=== PATIENT | male | born 1945 | race Caucasian/White ===

== ENCOUNTER 2016-06-30 08:22 | Day surgery (SDC) | payer MEDICARE, OTHER ==
[2016-06-30] MEDS ORDERED: KETOROLAC 0.45% OPHTH DROPS OPTH ONE (08:50)
[2016-06-30] MEDS ORDERED: TROPICAMIDE 1% OPHTH 2 ML DROPS OPTH ONE (08:50)
[2016-06-30] MEDS ORDERED: CYCLOPENTOLATE 1% OPHTH DROPS 2 ML OPTH ONE (08:50)
[2016-06-30] MEDS ORDERED: LACTATED RINGERS 500 ML IV ONE (09:15)
[2016-06-30] MEDS ORDERED: LIDOCAINE-MPF 2% 5 ML VIAL IM ONE (10:00)
[2016-06-30] MEDS ORDERED: MIDAZOLAM 2 MG/2 ML VIAL IVP ONE (10:00)
[2016-06-30] MEDS ORDERED: PROPOFOL 200 MG/20 ML VIAL IVP ONE (10:00)
[2016-06-30] MEDS ORDERED: EPINEPHrine 1 MG/ML AMP IO ONE (10:03)
[2016-06-30] MEDS ORDERED: BRIMONIDINE 0.2% OPHTH DROPS 5 ML OPTH ONE (10:03)
[2016-06-30] MEDS ORDERED: PROPARACAINE 0.5% OPHTH DROPS 15 ML OPTH ONE (10:03)
[2016-06-30] MEDS ORDERED: levoFLOXacin 0.5% OPHTH DROPS 5 ML OPTH ONE (10:04)
[2016-06-30] MEDS ORDERED: TETRACAINE OPHTH DROPS 2 ML OPTH ONE (10:04)
[2016-06-30] MEDS ORDERED: BSS/LIDOCAINE/EPINEPHRINE 1 ML SYRINGE IO ONE (10:04)
[2016-06-30] MEDS ORDERED: CHONDR SULF/HYALURONATE SYRINGE IO ONE (10:04)
== END 2016-06-30 08:23 | disposition home or self-care (01) ==
PROC: 08RJ3JZ Replacement of Right Lens with Synthetic Substitute, Percutaneous Approach (ICD-10-PCS; principal; 2016-06-30 09:35)
DX: H25.11 Age-related nuclear cataract, right eye (principal)
CPT/HCPCS: 66984; V2632

== ENCOUNTER 2016-07-09 11:17 | Emergency (ER) | payer MEDICARE, OTHER ==
[2016-07-09] MEDS ORDERED: LIDOCAINE-MPF 1% 5 ML VIAL ONE (12:54)
== END 2016-07-09 13:41 | disposition home or self-care (01) ==
DX: S01.81XA Laceration without foreign body of other part of head, initial encounter (principal); W01.0XXA Fall on same level from slipping, tripping and stumbling without subsequent striking against object, initial encounter; Z91.81 History of falling; Y93.01 Activity, walking, marching and hiking; Y92.009 Unspecified place in unspecified non-institutional (private) residence as the place of occurrence of the external cause; Y99.8 Other external cause status; G20 Parkinson's disease; Z87.891 Personal history of nicotine dependence

== ENCOUNTER 2016-07-14 12:21 | Day surgery (SDC) | payer MEDICARE, OTHER ==
[2016-07-14] MEDS ORDERED: CYCLOPENTOLATE 1% OPHTH DROPS 2 ML OPTH ONE (12:54)
[2016-07-14] MEDS ORDERED: TROPICAMIDE 1% OPHTH 2 ML DROPS OPTH ONE (12:54)
[2016-07-14] MEDS ORDERED: KETOROLAC 0.45% OPHTH DROPS OPTH ONE (12:54)
[2016-07-14] MEDS ORDERED: LACTATED RINGERS 500 ML IV ONE (13:09)
[2016-07-14] MEDS ORDERED: PROPOFOL 200 MG/20 ML VIAL IVP ONE (14:10)
[2016-07-14] MEDS ORDERED: MIDAZOLAM 2 MG/2 ML VIAL IVP ONE (14:10)
[2016-07-14] MEDS ORDERED: LIDOCAINE-MPF 2% 5 ML VIAL IM ONE (14:10)
[2016-07-14] MEDS ORDERED: BRIMONIDINE 0.2% OPHTH DROPS 5 ML OPTH ONE (14:11)
[2016-07-14] MEDS ORDERED: PROPARACAINE 0.5% OPHTH DROPS 15 ML OPTH ONE (14:11)
[2016-07-14] MEDS ORDERED: CHONDR SULF/HYALURONATE SYRINGE IO ONE (14:11)
[2016-07-14] MEDS ORDERED: BSS/LIDOCAINE/EPINEPHRINE 1 ML SYRINGE IO ONE (14:11)
[2016-07-14] MEDS ORDERED: levoFLOXacin 0.5% OPHTH DROPS 5 ML OPTH ONE (14:11)
[2016-07-14] MEDS ORDERED: EPINEPHrine 1 MG/ML AMP IO ONE (14:11)
== END 2016-07-14 12:22 | disposition home or self-care (01) ==
PROC: 08RK3JZ Replacement of Left Lens with Synthetic Substitute, Percutaneous Approach (ICD-10-PCS; principal; 2016-07-14 13:50)
DX: H25.12 Age-related nuclear cataract, left eye (principal); Z87.891 Personal history of nicotine dependence; G20 Parkinson's disease
CPT/HCPCS: 66984; V2632

== ENCOUNTER 2017-01-06 01:57 | Emergency (ER) | payer MEDICARE, OTHER ==
--- NOTE | 2017-01-06 03:08 | XRAY Preliminary Report ---
Exam: XR KNEE 4 VIEW RT IMPRESSION: Prepatellar swelling without right knee fracture or malalignment seen. [facility] SITE ID: [id number]
--- NOTE | 2017-01-06 03:10 | XRAY Preliminary Report ---
Exam: XR Hand 3 View RT IMPRESSION: Negative right hand. [facility] SITE ID: [id number]
--- NOTE | 2017-01-06 03:11 | XRAY Report ---
EXAM: RIGHT KNEE RADIOGRAPHY EXAM DATE: 01/06/2017 02:37 AM. CLINICAL HISTORY: Knee pain and swelling after fall. COMPARISON: None. TECHNIQUE: 4 views. FINDINGS: Bones: Normal. No fractures or bone lesions. Joints: Normal. No effusion. No subluxations. Soft Tissues: Prepatellar swelling. IMPRESSION: Prepatellar swelling without right knee fracture or malalignment seen. [facility] Referring Provider Line: [phone] SITE ID: [id number]
--- NOTE | 2017-01-06 03:12 | XRAY Report ---
EXAM: RIGHT HAND RADIOGRAPHY EXAM DATE: 01/06/2017 02:36 AM. CLINICAL HISTORY: Hand pain, fall. COMPARISON: 01/15/2009. TECHNIQUE: 3 views. FINDINGS: Bones: Normal. No fractures or bone lesions. Joints: Very mild arthritic changes. No subluxations. Soft Tissues: Normal. No soft tissue swelling. IMPRESSION: Negative right hand. [facility] Referring Provider Line: [phone] SITE ID: [id number]
[2017-01-06] MEDS ORDERED: LIDOCAINE 2% 10 ML MDV ONE (03:18)
[2017-01-06] MEDS ORDERED: methylPREDNISolone SUCCINATE 40 MG/ML VIAL ONE (03:18)
--- NOTE | 2017-01-06 03:44 | ED Physician Documentation ---
PD HPI LOWER EXT INJURY - Stated complaint Stated Complaint: R KNEE PX - Chief complaint Chief Complaint: Ext Problem - History obtained from History obtained from: Patient, Family - History of Present Illness PD HPI LOW EXT INJURY LOCATION: Right, Knee Type of injury: Fall Where injury occurred: Home Timing - onset: Yesterday Timing - details: Abrupt onset Improved by: Immobilization Worsened by: Moving, Palpating Associated symptoms: Swelling Contributing factors: No: Anticoagulated, Prior ortho surgery Similar symptoms before: No diagnosis Recently seen: Not recently seen - Additional information Additional information: patient is a 71 year old male with a history of parkinson's and mulitple falls who is presenting to the emergency for right sided knee pain and swelling. Patient states that he fell yesterday and the swelling in the knee has become progressively worse so he came in for evaluation. patient also states that he hurt his right hand in the fall as well. Review of Systems Constitutional: denies: Fever, Chills Eyes: denies: Decreased vision, Photophobia Ears: denies: Ear pain, Drainage/discharge Nose: denies: Rhinorrhea / runny nose, Congestion Throat: denies: Sore throat Cardiac: denies: Chest pain / pressure Respiratory: denies: Cough GI: denies: Abdominal Pain, Nausea, Vomiting Skin: denies: Rash, Lesions Musculoskeletal: reports: Extremity pain, Joint pain, Extremity swelling, Joint swelling. denies: Neck pain, Back pain Neurologic: reports: Other (tremors). denies: Generalized weakness, Focal weakness Psychiatric: denies: Depressed, Suicidal Immunocompromised: denies: Immunocompromised PD PAST MEDICAL HISTORY - Past Medical History Past Medical History: Yes Cardiovascular: Other Respiratory: Pneumonia, Other Neuro: Parkinson's Endocrine/Autoimmune: Other GI: Colon polyps : Incontinence, Other HEENT: Chronic vision loss Psych: None Musculoskeletal: Osteoarthritis, Chronic back pain, Other Derm: None Other Past Medical History: Amilcar's syndrome - Past Surgical History Past Surgical History: Yes General: Colonoscopy Ortho: Rotator cuff repair, Spine surgery, Other Derm: Debridement - Present Medications Home Medications: Ambulatory Orders Medication Instructions Recorded Confirmed Amantadine HCl [Amantadine] 100 mg ORAL BID 07/03/14 01/06/17 Quetiapine Fumarate 62.5 mg ORAL DAILY 07/03/14 01/06/17 Ropinirole HCl 8 mg ORAL TID 07/03/14 01/06/17 Trazodone HCl 50 mg ORAL QPM 07/03/14 01/06/17 Mirabegron [Myrbetriq] 50 mg PO DAILY 05/19/16 01/06/17 Donepezil [Aricept] 1 tab PO DAILY 06/30/16 01/06/17 Mirtazapine 1 tab PO DAILY 06/30/16 01/06/17 Carbidopa/Levodopa [Rytary ER 1 each PO DAILY 01/06/17 01/06/17 61.25 mg-245 mg Cap] Escitalopram [Lexapro] 15 mg PO DAILY 01/06/17 01/06/17 - Allergies Allergies/Adverse Reactions: Allergies Allergy/AdvReac Type Severity Reaction Status Date / Time morphine Allergy Severe Hallucinati Verified 01/06/17 02:29 ons ertapenem AdvReac Hallucinati Verified 01/06/17 02:29 ons - Social History Does the pt smoke?: No Smoking Status: Former smoker Does the pt drink ETOH?: No Does the pt have substance abuse?: No - Immunizations Immunizations are current?: No Immunizations: TDAP current <10years - POLST Patient has POLST: No PD ED PE NORMAL - Vitals Vital signs reviewed: Yes - General General: Alert and oriented X 3 - HEENT HEENT: Atraumatic, PERRL - Neck Neck: Supple, no meningeal sign - Cardiac Cardiac: RRR, No murmur - Respiratory Respiratory: No respiratory distress - Abdomen Abdomen: Soft - Derm Derm: Normal color, Warm and dry - Neuro Neuro: Alert and oriented X 3 - Psych Psych: Normal mood, Normal affect PD ED PE EXPANDED - Extremities Extremities: Right finger(s) (tenderness and swelling over multiple digits in right hand), Right knee (tenderness and swelling of right knee) - Neuro Neuro: Other (tremor) Results - Vitals Vitals: Vital Signs - 24 hr 01/06/17 02:00 Temperature 36.4 C L Heart Rate 55 L Respiratory 17 Rate Blood Pressure 155/82 H O2 Saturation 100 Oxygen O2 Source Room air - Rads (name of study) knee x-ray Radiology: Final report received (no acute fracture or dislocation) hand x-ray Radiology: Final report received (no acute fracture or dislocation) Procedures - Arthrocentesis Joint: Knee Preparation: Consent obtained, Sterile prep and drape Anesthesia: Lidocaine 2% Fluid: Clear Aftercare: Dressing applied, No complications PD MEDICAL DECISION MAKING - ED course Complexity details: reviewed old records, reviewed results, re-evaluated patient , considered differential, d/w patient, d/w family ED course: Patient was seen and examined at bedside. patient was sent for imaging. When patient returned the results were reviewed. there was no acute fracture or dislocation. a therapuetic arthrocentesis was performed. Patient tolerated it well. Patient required no further work up at this time and was stable for discharge with outpatient follow up. Departure - Departure Disposition: 01 Home, Self Care Clinical Impression: Swelling of right knee joint Condition: Good Instructions: ED Effusion Knee Follow-Up: Chris Ramirez MD [Primary Care Provider] - As Needed Comments: Your x-rays today showed no acute fractures or dislocations. You should continue to ice your knee and take motrin or tylenol as needed for pain. You should elevate your knee as much as possible. You can followup with your pmd if your symptoms persist. You may return to the emergency department at any time for new, worsening or uncontrollable symptoms.
[2017-01-06 03:46] VITALS: BP 143/75
== END 2017-01-06 03:55 | disposition home or self-care (01) ==
LOC: ED 01:57
DX: M25.461 Effusion, right knee (principal); G20 Parkinson's disease; I73.00 Raynaud's syndrome without gangrene; Z87.891 Personal history of nicotine dependence; Z91.81 History of falling
CPT/HCPCS: 20610; 99283

== ENCOUNTER 2017-01-14 08:11 | Outpatient (CLI) | payer MEDICARE, OTHER ==
[2017-01-14 08:36] LABS: BASOPHILS % (AUTO) 0.4 %; EOSINOPHILS # (AUTO) 0.1 10^3/uL (0.0-0.7); EOSINOPHILS % (AUTO) 1.9 %; HCT - HEMATOCRIT 32.1 % (42.0-52.0); HGB - HEMOGLOBIN 10.8 g/dL (14.0-18.0); LYMPHOCYTES # (AUTO) 0.6 10^3/uL (1.5-3.5); LYMPHOCYTES % (AUTO) 12.9 %; MEAN CORPUSCULAR HEMOGLOBIN 31.7 pg (27.0-31.0); MEAN CORPUSCULAR HGB CONC 33.6 g/dL (32.0-36.0); MEAN CORPUSCULAR VOLUME 94.6 fL (80.0-94.0); MEAN PLATELET VOLUME 5.2 fL (7.4-11.4); MONOCYTES # (AUTO) 0.3 10^3/uL (0.0-1.0); MONOCYTES % (AUTO) 7.6 %; NEUTROPHILS # (AUTO) 3.5 10^3/uL (1.5-6.6); NEUTROPHILS % (AUTO) 77.2 %; RED CELL DISTRIBUTION WIDTH 13.4 % (12.0-15.0); UNCORRECTED WHITE BLOOD COUNT 4.6 x10^3/uL; WHITE BLOOD COUNT 4.6 x10^3/uL (4.8-10.8)
[2017-01-14 09:15] LABS: ALBUMIN/GLOBULIN RATIO 1.1 (1.0-2.2); BILIRUBIN,TOTAL 0.6 mg/dL (0.2-1.0); BUN - BLOOD UREA NITROGEN 34 mg/dL (6-20); CALCIUM 9.1 mg/dL (8.5-10.3); CARBON DIOXIDE - CO2 32 mmol/L (21-32); CHLORIDE 102 mmol/L (101-111); CREATININE 1.1 mg/dL (0.6-1.2); GFR - MDRD 66 (>89); GLUCOSE 103 mg/dL (70-100); POTASSIUM 4.5 mmol/L (3.5-5.0); SODIUM 140 mmol/L (135-145); TOTAL PROTEIN 6.8 g/dL (6.7-8.2)
[2017-01-14 09:17] LABS: URIC ACID 3.2 mg/dL (2.6-7.2)
[2017-01-17 16:37] LABS: ANA SCREEN POSITIVE (NEGATIVE); ANA TITER 1:40 titer (())
== END 2017-01-14 08:12 | disposition home or self-care (01) ==
LOC: LAB 08:11
PROVIDERS: ATTEND Family Medicine
DX: M19.90 Unspecified osteoarthritis, unspecified site (principal); R63.4 Abnormal weight loss; M70.41 Prepatellar bursitis, right knee
CPT/HCPCS: 36415; 80053; 84443; 84550; 85025; 85651; 86038; 86140; 86430

== ENCOUNTER 2017-01-18 15:16 | Outpatient (CLI) | payer MEDICARE, OTHER | END 2017-01-18 15:17 | LOC: LAB.R 15:16 | PROVIDERS: ATTEND Physician Assistant Medical | DX: M70.41 Prepatellar bursitis, right knee (principal) | CPT/HCPCS: 87070; 87205 ==

== ENCOUNTER 2017-01-20 12:07 | Emergency (ER) | payer MEDICARE, OTHER ==
--- NOTE | 2017-01-20 14:25 | ED Physician Documentation ---
PD HPI LOWER EXT INJURY - Stated complaint Stated Complaint: R KNEE SWELLING - Chief complaint Chief Complaint: Ext Problem - History obtained from History obtained from: Patient, Family - History of Present Illness PD HPI LOW EXT INJURY LOCATION: Other (71-year-old gentleman with history of Parkinson's who fell a couple of weeks ago and scraped his right knee. He has developed pre-Patellar bursitis, has had a needle aspiration as well as one incision made and continues to have redness and swelling but no fevers. He is on Bactrim currently. Culture from 2 days ago grew nothing. Of note at some point someone did ISAIAS on him which was positive for speckled pattern and this was discussed with the patient and his and they know they need further workup on that for connective tissue disease.) Review of Systems Constitutional: denies: Fever, Chills Throat: denies: Dental pain / toothache, Sore throat Cardiac: denies: Chest pain / pressure, Palpitations Respiratory: denies: Dyspnea, Cough PD PAST MEDICAL HISTORY - Past Medical History Past Medical History: Yes Cardiovascular: Other Respiratory: Pneumonia, Other Neuro: Parkinson's Endocrine/Autoimmune: Other GI: Colon polyps : Incontinence, Other HEENT: Chronic vision loss Psych: None Musculoskeletal: Osteoarthritis, Chronic back pain, Other Derm: None - Past Surgical History Past Surgical History: Yes General: Colonoscopy Ortho: Rotator cuff repair, Spine surgery, Other Derm: Debridement - Present Medications Home Medications: Ambulatory Orders Medication Instructions Recorded Confirmed Amantadine HCl [Amantadine] 100 mg ORAL BID 07/03/14 01/20/17 Quetiapine Fumarate 62.5 mg ORAL DAILY 07/03/14 01/20/17 Ropinirole HCl 8 mg ORAL TID 07/03/14 01/20/17 Trazodone HCl 50 mg ORAL QPM 07/03/14 01/20/17 Mirabegron [Myrbetriq] 50 mg PO DAILY 05/19/16 01/20/17 Donepezil [Aricept] 1 tab PO DAILY 06/30/16 01/20/17 Mirtazapine 1 tab PO DAILY 06/30/16 01/20/17 Carbidopa/Levodopa [Rytary ER 1 each PO DAILY 01/06/17 01/20/17 61.25 mg-245 mg Cap] Escitalopram [Lexapro] 15 mg PO DAILY 01/06/17 01/20/17 - Allergies Allergies/Adverse Reactions: Allergies Allergy/AdvReac Type Severity Reaction Status Date / Time morphine Allergy Severe Hallucinati Verified 01/20/17 14:12 ons ertapenem AdvReac Hallucinati Verified 01/20/17 14:12 ons - Social History Does the pt smoke?: No Smoking Status: Former smoker Does the pt drink ETOH?: No Does the pt have substance abuse?: No - Immunizations Immunizations are current?: No Immunizations: TDAP current <10years - POLST Patient has POLST: No PD ED PE NORMAL - Vitals Vital signs reviewed: Yes - General General: Alert and oriented X 3, Other (Parkinsonian motion) - Extremities Extremities: Other (Redness and swelling with scrapes over the prepatellar bursa on the right knee without limited range of motion.) - Neuro Neuro: Alert and oriented X 3, Normal speech - Psych Psych: Normal mood, Normal affect Results - Vitals Vitals: Vital Signs - 24 hr 01/20/17 01/20/17 12:21 15:50 Temperature 37.1 C Heart Rate 79 74 Respiratory 17 16 Rate Blood Pressure 120/60 111/64 O2 Saturation 100 94 Oxygen O2 Source Room air - Labs Labs: Laboratory Tests 01/20/17 01/20/17 01/20/17 14:41 14:41 14:41 WBC 6.2 RBC 3.34 L Hgb 10.6 L Hct 31.8 L MCV 95.0 H MCH 31.7 H MCHC 33.4 RDW 13.4 Plt Count 206 MPV 5.3 L Neut # 4.9 Lymph # 0.8 L [place] # 0.4 Eos # 0.1 Baso # 0.0 Absolute Nucleated RBC 0.00 Nucleated RBCs 0.0 ESR 67 H Sodium 139 Potassium 4.8 Chloride 102 Carbon Dioxide 31 Anion Gap 6.0 BUN 38 H Creatinine 1.3 H Estimated GFR (MDRD) 55 L Glucose 97 Calcium 9.2 C-Reactive Protein 2.6 H Procedures - Abscess I&D (location) right prepatellar bursa Preparation: Betadine, Lidocaine 1%, With epi Incision: Incised with scalpel, Loculations broken, Packed (1/4 inch packing), Culture obtained. No: Purulent drainage (bloody/clear) Other: Pt tolerated well, Dressing applied PD MEDICAL DECISION MAKING - ED course ED course: 71-year-old gentleman with prepatellar bursitis. I spoke with his PA, who admits that the I&D done a few days ago was probably insufficient from his parkinsonian motion. We did get a good I&D today and the culture was repeated and the bursa was packed. I will change his antibiotics at this juncture, since his recent culture was negative. His blood work is slightly improved in the sense that he does not have a white count and his CRP is better than it was the other day. His sed rate is slightly higher but he has chronically high ESRs , likely related to whatever autoimmune process he has and needs to be followed up and [facility] does know about that. 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 Discharge Date/Time: 01/20/17 15:40
[2017-01-20] MEDS ORDERED: LIDOCAINE 2% 10 ML MDV ONE (14:36)
[2017-01-20] MEDS ORDERED: LIDOCAINE MPF 1%-EPI 1:200000 30 ML VIAL ONE (14:36)
[2017-01-20 14:51] LABS: BASOPHILS % (AUTO) 0.5 %; EOSINOPHILS # (AUTO) 0.1 10^3/uL (0.0-0.7); EOSINOPHILS % (AUTO) 1.8 %; HCT - HEMATOCRIT 31.8 % (42.0-52.0); HGB - HEMOGLOBIN 10.6 g/dL (14.0-18.0); LYMPHOCYTES # (AUTO) 0.8 10^3/uL (1.5-3.5); LYMPHOCYTES % (AUTO) 13.7 %; MEAN CORPUSCULAR HEMOGLOBIN 31.7 pg (27.0-31.0); MEAN CORPUSCULAR HGB CONC 33.4 g/dL (32.0-36.0); MEAN PLATELET VOLUME 5.3 fL (7.4-11.4); MONOCYTES # (AUTO) 0.4 10^3/uL (0.0-1.0); MONOCYTES % (AUTO) 5.8 %; NEUTROPHILS # (AUTO) 4.9 10^3/uL (1.5-6.6); NEUTROPHILS % (AUTO) 78.2 %; RED BLOOD COUNT 3.34 10^6/uL (4.70-6.10); RED CELL DISTRIBUTION WIDTH 13.4 % (12.0-15.0); UNCORRECTED WHITE BLOOD COUNT 6.2 x10^3/uL; WHITE BLOOD COUNT 6.2 x10^3/uL (4.8-10.8)
[2017-01-20 15:05] LABS: CALCIUM 9.2 mg/dL (8.5-10.3); CREATININE 1.3 mg/dL (0.6-1.2); POTASSIUM 4.8 mmol/L (3.5-5.0)
[2017-01-20 15:51] VITALS: BP 111/64
== END 2017-01-20 15:40 | disposition home or self-care (01) ==
LOC: ED 12:07
DX: M70.41 Prepatellar bursitis, right knee (principal); G20 Parkinson's disease; M19.90 Unspecified osteoarthritis, unspecified site; Z86.010 Personal history of colon polyps; Z87.891 Personal history of nicotine dependence
CPT/HCPCS: 10060; 36415; 80048; 85025; 85651; 86140; 87070; 87077; 87205; 99283

== ENCOUNTER 2017-01-27 07:19 | Outpatient (CLI) | payer MEDICARE, OTHER ==
[2017-01-29 11:35] LABS: TEST RESULT REPORT (())
== END 2017-01-27 07:20 | disposition home or self-care (01) ==
LOC: LAB 07:19
PROVIDERS: ATTEND Family Medicine
DX: R76.0 Raised antibody titer (principal); R55 Syncope and collapse; J84.9 Interstitial pulmonary disease, unspecified; R63.4 Abnormal weight loss; M70.41 Prepatellar bursitis, right knee
CPT/HCPCS: 36415; 81599; 85651; 86140; 86225; 86255

== ENCOUNTER 2017-01-28 11:46 | Emergency (ER) | payer MEDICARE, OTHER ==
--- NOTE | 2017-01-28 12:28 | ED Physician Documentation ---
PD HPI DYSPNEA - Stated complaint Stated Complaint: SOA - Chief complaint Chief Complaint: General - History obtained from History obtained from: Patient, Family () - History of Present Illness Timing - onset: How many weeks ago (several weeks of dyspnea with activity, epsidoes of general weakness and also having worse balance with falling often. Has fallen several times in the past couple of days. He has a can but does not use it regularly and it does not guard his falls anyway, per patient.) Timing - onset during: Light activity Timing - details: Gradual onset, Waxing and waning Inciting event(s): No: Out of meds, URI Improved by: Rest Worsened by: Exertion. No: Laying flat, Coughing Associated symptoms: Cough (mild intermittent, without sputum production.). No : Fever, Wheezing, Chest pain / discomfort, Palpitations, Bilateral edema Similar symptoms before: Has not had sx before Recently seen: Clinic (saw PMD about the dyspnea, and is to get heart stress test (presume chemical since he cannot do exertional due to Parkinsons/balance) . Also has had knee effusion/infection and had bursal drainage and placed on Cipro? by Ortho last week. Patient had already had problems with increased falls prior to that though.) Review of Systems Constitutional: denies: Fever, Chills Nose: denies: Rhinorrhea / runny nose, Congestion Throat: denies: Sore throat Cardiac: denies: Chest pain / pressure, Palpitations, Pedal edema, Calf pain Respiratory: reports: Dyspnea, Cough. denies: Wheezing GI: denies: Abdominal Pain, Nausea, Vomiting, Diarrhea, Bloody / black stool : denies: Dysuria, Frequency Neurologic: reports: Generalized weakness. denies: Difficulty speaking, Confused, Altered mental status, Headache PD PAST MEDICAL HISTORY - Past Medical History Past Medical History: Yes Cardiovascular: Other Respiratory: Pneumonia, Other Neuro: Parkinson's Endocrine/Autoimmune: Other GI: Colon polyps : Incontinence, Other HEENT: Chronic vision loss Psych: None Musculoskeletal: Osteoarthritis, Chronic back pain, Other Derm: None - Past Surgical History Past Surgical History: Yes General: Colonoscopy Ortho: Rotator cuff repair, Spine surgery, Other Derm: Debridement - Present Medications Home Medications: Ambulatory Orders Medication Instructions Recorded Confirmed Amantadine HCl [Amantadine] 100 mg ORAL BID 07/03/14 01/20/17 Quetiapine Fumarate 62.5 mg ORAL DAILY 07/03/14 01/28/17 Ropinirole HCl 8 mg ORAL TID 07/03/14 01/28/17 Trazodone HCl 50 mg ORAL QPM 07/03/14 01/28/17 Mirabegron [Myrbetriq] 50 mg PO DAILY 05/19/16 01/28/17 Donepezil [Aricept] 1 tab PO DAILY 06/30/16 01/28/17 Mirtazapine 1 tab PO DAILY 06/30/16 01/28/17 Escitalopram [Lexapro] 15 mg PO DAILY 01/06/17 01/28/17 Albuterol Sulfate [Proair Hfa 2 puffs IH QID #1 hfa.aer.ad 01/28/17 Inhaler] Carbidopa/Levodopa [Rytary ER 11 each PO QID 01/28/17 01/28/17 23.75 mg-95 mg Cap] Fludrocortisone [Florinef] 0.1 mg PO DAILY #30 tablet 01/28/17 - Allergies Allergies/Adverse Reactions: Allergies Allergy/AdvReac Type Severity Reaction Status Date / Time morphine Allergy Severe Hallucinati Verified 01/20/17 14:12 ons ertapenem AdvReac Hallucinati Verified 01/20/17 14:12 ons - Social History Does the pt smoke?: No Smoking Status: Former smoker Does the pt drink ETOH?: No Does the pt have substance abuse?: No - Immunizations Immunizations are current?: No Immunizations: TDAP current <10years - POLST Patient has POLST: No PD ED PE NORMAL - Vitals Vital signs reviewed: Yes - General General: Alert and oriented X 3, Well developed/nourished, Other (thin and frail appearing) - HEENT HEENT: Ears normal, Pharynx benign, Other (some faint bruising left forehead. ) - Neck Neck: Supple, no meningeal sign, No bony TTP, No adenopathy - Cardiac Cardiac: RRR, No murmur - Respiratory Respiratory: Clear bilaterally, Other (no chestwall tenderness) - Abdomen Abdomen: Soft, Non tender - Back Back: No spinal TTP - Derm Derm: Normal color, Warm and dry - Extremities Extremities: No edema, No calf tenderness / cord, Other (right knee without effusion, hole in anterior aspect. Good full extension. ) - Neuro Neuro: Alert and oriented X 3, chief wheelage clerk 2-12 intact, No motor deficit, No sensory deficit, Normal speech, Other (some general movements c/w parkinsons. ) Results - Vitals Vitals: Vital Signs - 24 hr 01/28/17 01/28/17 01/28/17 11:53 12:11 14:44 Temperature 36.5 C Heart Rate 58 L 64 59 L Respiratory 18 18 Rate Blood Pressure 123/59 L 138/78 H 137/71 H O2 Saturation 94 99 100 Oxygen O2 Source Room air - Labs Labs: Laboratory Tests 01/28/17 01/28/17 01/28/17 13:15 13:15 13:15 WBC 4.1 L RBC 3.08 L Hgb 9.9 L Hct 29.3 L MCV 95.1 H MCH 32.1 H MCHC 33.7 RDW 13.7 Plt Count 169 MPV 5.6 L Neut # 3.2 Lymph # 0.6 L [place] # 0.3 Eos # 0.0 Baso # 0.0 Absolute Nucleated RBC 0.00 Nucleated RBCs 0.0 ESR Sodium 138 Potassium 4.4 Chloride 101 Carbon Dioxide 30 Anion Gap 7.0 BUN 34 H Creatinine 1.4 H Estimated GFR (MDRD) 50 L Glucose 93 Calcium 8.9 Magnesium 2.3 Total Bilirubin 0.9 AST 13 ALT < 10 L Alkaline Phosphatase 91 Troponin I B-Natriuretic Peptide 30 Total Protein 6.4 L Albumin 3.6 Globulin 2.8 Albumin/Globulin Ratio 1.3 Lipase 16 L Carcinoembryonic Ag Vitamin B12 Urine Color Urine Clarity Urine pH Ur Specific Sanders Urine Protein Urine Glucose (UA) Urine Ketones Urine Occult Blood Urine Nitrite Urine Bilirubin Urine Urobilinogen Ur Leukocyte Esterase Ur Microscopic Review Urine Culture Comments 01/28/17 01/28/17 01/28/17 13:15 13:15 13:15 WBC RBC Hgb Hct MCV MCH MCHC RDW Plt Count MPV Neut # Lymph # [place] # Eos # Baso # Absolute Nucleated RBC Nucleated RBCs ESR Sodium Potassium Chloride Carbon Dioxide Anion Gap BUN Creatinine Estimated GFR (MDRD) Glucose Calcium Magnesium Total Bilirubin AST ALT Alkaline Phosphatase Troponin I < 0.04 B-Natriuretic Peptide Total Protein Albumin Globulin Albumin/Globulin Ratio Lipase Carcinoembryonic Ag 1.3 Vitamin B12 197 Urine Color Urine Clarity Urine pH Ur Specific [place] Urine Protein Urine Glucose (UA) Urine Ketones Urine Occult Blood Urine Nitrite Urine Bilirubin Urine Urobilinogen Ur Leukocyte Esterase Ur Microscopic Review Urine Culture Comments 01/28/17 01/28/17 13:15 14:09 WBC RBC Hgb Hct MCV MCH MCHC RDW Plt Count MPV Neut # Lymph # [place] # Eos # Baso # Absolute Nucleated RBC Nucleated RBCs ESR 49 H Sodium Potassium Chloride Carbon Dioxide Anion Gap BUN Creatinine Estimated GFR (MDRD) Glucose Calcium Magnesium Total Bilirubin AST ALT Alkaline Phosphatase Troponin I B-Natriuretic Peptide Total Protein Albumin Globulin Albumin/Globulin Ratio Lipase Carcinoembryonic Ag Vitamin B12 Urine Color DARK YELLOW Urine Clarity CLEAR Urine pH 7.0 Ur Specific [place] 1.025 Urine Protein TRACE Urine Glucose (UA) NEGATIVE Urine Ketones 15 H Urine Occult Blood NEGATIVE Urine Nitrite NEGATIVE Urine Bilirubin NEGATIVE Urine Urobilinogen 0.2 (NORMAL) Ur Leukocyte Esterase NEGATIVE Ur Microscopic Review NOT INDICATED Urine Culture Comments NOT INDICATED - Rads (name of study) head CT Radiology: Prelim report reviewed (no bleed/subdural, acute changes. ) chest Radiology: Prelim report reviewed (no acute process) PD MEDICAL DECISION MAKING - ED course Complexity details: reviewed results, considered differential (he is on quinolone but has had symptoms prior to starting that. Could consider changing abx but his culture is sensitive to that (and other meds too). No obvious lung/ heart process. He did feel better with neb treatment. Will give MDI. Heart rate in ED did vary down to 48-50s but he felt okay. Consider Holter to see if goes slower at times, which could lead to his "weak spells" and some of the falls. ) , d/w patient, d/w talent acquisition consultant (Dr. Mildred Hudson, his Heurologist, who suggested some med changes. Talked also with Dr. Ramirez, who will set up pt with Holter to see about heart rate over time, given the episodes of falling/ weakness. Patient does not like to use cane and does not have walker, but given a walker and he agrees to use it. ) Departure - Departure Disposition: 01 Home, Self Care Clinical Impression: Frequent falls, Parkinsons Dyspnea Qualifiers: Dyspnea type: shortness of breath Qualified Code(s): R06.02 - Shortness of breath Condition: Stable Record reviewed to determine appropriate education?: Yes Instructions: ED Dyspnea Shortness of Breath Follow-Up: Chris Ramirez MD [Primary Care Provider] - Prescriptions: Fludrocortisone [Florinef] 0.1 mg PO DAILY #30 tablet Albuterol Sulfate [Proair Hfa Inhaler] 2 puffs IH QID #1 hfa.aer.ad Comments: Follow-up with Dr. Ramirez regarding general care and the dyspnea. Try albuterol inhaler 2 puffs 4 times a day to see if it helps with your breathing. Dr. Ramirez will also check out your heart with a stress test likely and the heart monitor to check your heart rhythm over several days. Regarding the falls , Dr. Villarreal your neurologist suggest stopping the Aricept for now and adding Florinef 0.1 mg daily. Follow-up with the appointment upcoming. Drink lots of fluids to maintain good hydration. Use a walker to help with your balance to reduce falling. Discharge Date/Time: 01/28/17 16:17
[2017-01-28 13:20] LABS: BASOPHILS % (AUTO) 0.5 %; EOSINOPHILS % (AUTO) 1.1 %; HCT - HEMATOCRIT 29.3 % (42.0-52.0); HGB - HEMOGLOBIN 9.9 g/dL (14.0-18.0); LYMPHOCYTES # (AUTO) 0.6 10^3/uL (1.5-3.5); LYMPHOCYTES % (AUTO) 14.5 %; MEAN CORPUSCULAR HEMOGLOBIN 32.1 pg (27.0-31.0); MEAN CORPUSCULAR HGB CONC 33.7 g/dL (32.0-36.0); MEAN CORPUSCULAR VOLUME 95.1 fL (80.0-94.0); MEAN PLATELET VOLUME 5.6 fL (7.4-11.4); MONOCYTES # (AUTO) 0.3 10^3/uL (0.0-1.0); MONOCYTES % (AUTO) 6.6 %; NEUTROPHILS # (AUTO) 3.2 10^3/uL (1.5-6.6); NEUTROPHILS % (AUTO) 77.3 %; RED BLOOD COUNT 3.08 10^6/uL (4.70-6.10); RED CELL DISTRIBUTION WIDTH 13.7 % (12.0-15.0); UNCORRECTED WHITE BLOOD COUNT 4.1 x10^3/uL; WHITE BLOOD COUNT 4.1 x10^3/uL (4.8-10.8)
[2017-01-28 13:43] LABS: ALBUMIN/GLOBULIN RATIO 1.3 (1.0-2.2); BILIRUBIN,TOTAL 0.9 mg/dL (0.2-1.0); BUN - BLOOD UREA NITROGEN 34 mg/dL (6-20); CALCIUM 8.9 mg/dL (8.5-10.3); CARBON DIOXIDE - CO2 30 mmol/L (21-32); CHLORIDE 101 mmol/L (101-111); CREATININE 1.4 mg/dL (0.6-1.2); GFR - MDRD 50 (>89); GLUCOSE 93 mg/dL (70-100); LIPASE 16 U/L (22-51); MAGNESIUM 2.3 mg/dL (1.7-2.8); POTASSIUM 4.4 mmol/L (3.5-5.0); SODIUM 138 mmol/L (135-145); TOTAL PROTEIN 6.4 g/dL (6.7-8.2)
--- NOTE | 2017-01-28 13:52 | XRAY Preliminary Report ---
Exam: XR Chest 2 View PA/LAT IMPRESSION: 1. No active cardiopulmonary disease. [facility] SITE ID: [id number]
--- NOTE | 2017-01-28 13:53 | CT Preliminary Report ---
Exam: CT Head W/O IMPRESSION: Normal head CT. [facility] SITE ID: [id number]
--- NOTE | 2017-01-28 13:55 | XRAY Report ---
EXAM: CHEST RADIOGRAPHY EXAM DATE: 01/28/2017 01:25 PM. CLINICAL HISTORY: Dyspnea exertional for 1-2 weeks. COMPARISON: 12/26/2015. TECHNIQUE: 2 views. FINDINGS: Lungs/Pleura: No focal opacities evident. No pleural effusion. No pneumothorax. Normal volumes. Mediastinum: Heart and mediastinal contours are unremarkable. Other: Lower thoracic and lumbar pedicle screws. IMPRESSION: 1. No active cardiopulmonary disease. [facility] Referring Provider Line: [phone] SITE ID: [id number]
--- NOTE | 2017-01-28 14:05 | CT Report ---
EXAM: CT HEAD EXAM DATE: 01/28/2017 01:36 PM. CLINICAL HISTORY: Recent falls, feeling off balance. COMPARISON: None. TECHNIQUE: Multiaxial CT images were obtained from the foramen magnum to the vertex. IV contrast: Non e. Reformats: Coronal. In accordance with CT protocol optimization, one or more of the following dose reduction techniques w ere utilized for this exam: automated exposure control, adjustment of mA and/or KV based on patient s ize, or use of iterative reconstructive technique. FINDINGS: Parenchyma: No intraparenchymal hemorrhage. No evidence of mass, midline shift, or CT findings of inf arction. Rueda-white differentiation is distinct. Extraaxial Spaces: Normal for age. No subdural or epidural collections identified. Ventricles: Normal in size and position. Sinuses: Imaged paranasal sinuses, orbits, and mastoids show no significant abnormality. Bones: No evidence of fracture or calvarial defect. Other: None. IMPRESSION: Normal head CT. [facility] Referring Provider Line: [phone] SITE ID: [id number]
[2017-01-28 14:40] LABS: BILIRUBIN,URINE NEGATIVE (NEGATIVE)
[2017-01-28 14:41] LABS: UA CHARGE (STRIP ONLY) YES; UR CULTURE IF IND NOT INDICATED
[2017-01-28 14:58] VITALS: BP 137/71
== END 2017-01-28 16:17 | disposition home or self-care (01) ==
LOC: ED 11:46
DX: G20 Parkinson's disease (principal); R06.02 Shortness of breath; Z91.81 History of falling
CPT/HCPCS: 36415; 70450; 71020; 80053; 81001; 81003; 82378; 82607; 83690; 83735; 83880; 84484; 85025; 85651; 87086; 93005; 99284

== ENCOUNTER 2017-01-29 14:52 | Outpatient (CLI) | payer MEDICARE, OTHER | END 2017-01-29 14:53 | disposition critical access hospital (66) | LOC: EMS 14:52 | PROVIDERS: ATTEND Surgery | DX: R55 Syncope and collapse (principal) | CPT/HCPCS: A0425; A0427 ==

== ENCOUNTER 2017-01-29 14:59 | Inpatient (IN) | payer MEDICARE, OTHER ==
[2017-01-29] MEDS ORDERED: SODIUM CHLORIDE 0.9% 1,000 ML IV ONE (15:12)
[2017-01-29] MEDS ORDERED: DEXAMETHASONE 10 MG/ML VIAL IVP STA (15:12)
[2017-01-29] MEDS ORDERED: DEXAMETHASONE 10 MG/ML VIAL ONE (16:09)
--- NOTE | 2017-01-29 16:19 | XRAY Preliminary Report ---
Exam: XR Shoulder 3 View RT IMPRESSION: 1. No evidence for acute fracture or dislocation of the right shoulder. 2. Ossicles projecting adjacent to the humerus could represent rotator cuff calcific tendinosis. 3. Mild degenerative arthritis of the glenohumeral and AC joint. [facility] SITE ID: [id number]
--- NOTE | 2017-01-29 16:21 | XRAY Report ---
EXAM: RIGHT/LEFT SHOULDER RADIOGRAPHY EXAM DATE: 01/29/2017 04:03 PM. CLINICAL HISTORY: Fall with injury. COMPARISON: None. TECHNIQUE: 3 views. FINDINGS: Bones: No acute fracture lines are seen. No focal abnormal osseous lesions. Mild irregularity of the cortex of the humeral greater tuberosity likely reflects sequelae of chronic degenerative change. Joints: Mild severe subluxation of the humeral head may represent rotator cuff pathology. Mild joint space narrowing with osteophytes at the glenohumeral and AC joint. Soft tissues: The visualized hemithorax is unremarkable. No evidence for pneumothorax. Soft tissue ca lcification adjacent to the humeral head may represent rotator cuff calcification. IMPRESSION: 1. No evidence for acute fracture or dislocation of the right shoulder. 2. Ossicles projecting adjacent to the humerus could represent rotator cuff calcific tendinosis. 3. Mild degenerative arthritis of the glenohumeral and AC joint. [facility] Referring Provider Line: [phone] SITE ID: [id number]
--- NOTE | 2017-01-29 16:23 | XRAY Preliminary Report ---
Exam: XR Elbow 3 View LT IMPRESSION: 1. No evidence for acute fracture or dislocation of the left elbow. 2. No elbow joint effusion is evident. [facility] SITE ID: [id number]
--- NOTE | 2017-01-29 16:25 | XRAY Preliminary Report ---
Exam: XR Shoulder 3 View LT IMPRESSION: 1. No evidence for acute fracture or dislocation of the left shoulder. 2. High riding humerus could represent rotator cuff pathology. 3. Degenerative arthritis of the glenohumeral and AC joint. 4. Incidental 4 mm left mid lung nodule. Nonemergent chest CT could be obtained for further evaluatio robbi ANDRES SITE ID: [id number]
--- NOTE | 2017-01-29 16:25 | XRAY Report ---
EXAM: LEFT ELBOW RADIOGRAPHY EXAM DATE: 01/29/2017 04:02 PM. CLINICAL HISTORY: Fall with injury. COMPARISON: None. TECHNIQUE: 3 views. FINDINGS: Bones: Normal. No fractures or bone lesions. Joints: Normal. No effusion. No subluxation. Soft Tissues: No soft tissue swelling. Traction osteophytes at the posterior olecranon. IMPRESSION: 1. No evidence for acute fracture or dislocation of the left elbow. 2. No elbow joint effusion is evident. [facility] Referring Provider Line: [phone] SITE ID: [id number]
--- NOTE | 2017-01-29 16:28 | XRAY Report ---
EXAM: LEFT SHOULDER RADIOGRAPHY EXAM DATE: 01/29/2017 04:02 PM. CLINICAL HISTORY: Fall with injury to shoulder. COMPARISON: None. TECHNIQUE: 3 views. FINDINGS: Bones: No acute fracture lines are seen. Irregularity of the humeral head at the greater tuberosity l ikely reflects sequelae of degenerative change. Joints: Mild supra subluxation of the humerus could represent rotator cuff pathology. A. C. Alignment is normal. Mild joint space narrowing with osteophytes of the glenohumeral and AC joint. Soft tissues: No soft tissue swelling is noted. 4 mm left midlung nodules evident. IMPRESSION: 1. No evidence for acute fracture or dislocation of the left shoulder. 2. High riding humerus could represent rotator cuff pathology. 3. Degenerative arthritis of the glenohumeral and AC joint. 4. Incidental 4 mm left mid lung nodule. Nonemergent chest CT could be obtained for further evaluatio robbi ANDRES Referring Provider Line: [phone] SITE ID: [id number]
--- NOTE | 2017-01-29 16:40 | ED Physician Documentation ---
PD HPI SYNCOPE - Stated complaint Stated Complaint: GLF - Chief complaint Chief Complaint: General - History obtained from History obtained from: Patient, Family, EMS - History of Present Illness Witnessed: Unwitnessed (he was getting to bathroom, trying to use walker that he got yesterday, and had feeling of general weakness and then fell. He does not think he had LOC. He has had episodes similar the past several weeks, increasingly. Seen yesterday in ER, with Dx of of falls, dyspnea, Parkinsons, but noted to have slow heart rate to 48-50 at times. Is to get Holter through PMD on Tuesday. His Neurologist, Uli Villalpando, suggested some med changes. He had not gotten new Rx as yet. Concern is whether he is falling, but sounds somewhat like near syncope. Today's episode sounds more like near syncope. He fell onto concrete with abrasion left elbow and shoulder. Might have struck head.) Timing - onset: How many minutes ago (30), Today Duration: Seconds Preceding symptoms: Light headed, Generalized weakness. No: Headache, Chest pain, Palpitations, Diaphoresis, Dyspnea, Abdominal pain Associated symptoms: No: Headache Contributing factors: Just stood up. No: Decreased PO intake, Noxious stimulae Injury occurred: Fell, Head injury. No: Neck injury Similar symptoms before: No diagnosis Recently seen: Emergency Dept (yesterday) Review of Systems Constitutional: denies: Fever, Chills, Myalgias Nose: denies: Rhinorrhea / runny nose, Congestion Throat: denies: Sore throat Cardiac: denies: Chest pain / pressure, Palpitations Respiratory: reports: Dyspnea. denies: Cough, Wheezing GI: denies: Abdominal Pain, Vomiting, Diarrhea : denies: Dysuria, Frequency Skin: reports: Abrasion (s) (left elbow) Neurologic: reports: Confused (slightly this morning.), Head injury. denies: Altered mental status, Headache Psychiatric: denies: Insomnia Endocrine: reports: Weight loss Immunocompromised: denies: Immunocompromised PD PAST MEDICAL HISTORY - Past Medical History Past Medical History: Yes Cardiovascular: Other Respiratory: Pneumonia, Other Neuro: Parkinson's Endocrine/Autoimmune: Other GI: Colon polyps : Incontinence, Other HEENT: Chronic vision loss Psych: None Musculoskeletal: Osteoarthritis, Chronic back pain, Other Derm: None - Past Surgical History Past Surgical History: Yes General: Colonoscopy Ortho: Rotator cuff repair, Spine surgery, Other Derm: Debridement - Present Medications Home Medications: Ambulatory Orders Medication Instructions Recorded Confirmed Amantadine HCl [Amantadine] 100 mg ORAL BID 07/03/14 01/20/17 Quetiapine Fumarate 62.5 mg ORAL DAILY 07/03/14 01/28/17 Ropinirole HCl 8 mg ORAL TID 07/03/14 01/28/17 Trazodone HCl 50 mg ORAL QPM 07/03/14 01/28/17 Mirabegron [Myrbetriq] 50 mg PO DAILY 05/19/16 01/28/17 Donepezil [Aricept] 1 tab PO DAILY 06/30/16 01/28/17 Mirtazapine 1 tab PO DAILY 06/30/16 01/28/17 Escitalopram [Lexapro] 15 mg PO DAILY 01/06/17 01/28/17 Albuterol Sulfate [Proair Hfa 2 puffs IH QID #1 hfa.aer.ad 01/28/17 Inhaler] Carbidopa/Levodopa [Rytary ER 11 each PO QID 01/28/17 01/28/17 23.75 mg-95 mg Cap] Fludrocortisone [Florinef] 0.1 mg PO DAILY #30 tablet 01/28/17 - Allergies Allergies/Adverse Reactions: Allergies Allergy/AdvReac Type Severity Reaction Status Date / Time morphine Allergy Severe Hallucinati Verified 01/20/17 14:12 ons ertapenem AdvReac Hallucinati Verified 01/20/17 14:12 ons - Social History Does the pt smoke?: No Smoking Status: Former smoker Does the pt drink ETOH?: No Does the pt have substance abuse?: No - Immunizations Immunizations are current?: No Immunizations: TDAP current <10years - POLST Patient has POLST: No PD ED PE NORMAL - General General: Alert and oriented X 3, Well developed/nourished - HEENT HEENT: Pharynx benign, Other (slight tender left forehead). No: Moist mucous membranes - Neck Neck: Supple, no meningeal sign, No adenopathy - Cardiac Cardiac: RRR, No murmur - Respiratory Respiratory: Clear bilaterally - Abdomen Abdomen: Soft, Non tender - Back Back: No CVA TTP, No spinal TTP - Derm Derm: Normal color, Warm and dry - Extremities Extremities: Other (left shoulder with tenderness and less ROM. Left elbow with abrasion. No effusion. ROM limited for full extension. Right shoulder chronic stiffness and less ROM. Right knee without effusion right now. No drainage. ) - Neuro Neuro: Alert and oriented X 3, marketing and development coordinator 2-12 intact, No motor deficit, Normal speech , Other (Parkinsons type movements. ) Results - Vitals Vitals: Vital Signs - 24 hr 01/29/17 15:01 Temperature 37.7 C H Heart Rate 76 Respiratory 14 Rate Blood Pressure 118/69 O2 Saturation 98 Oxygen O2 Source Room air - Rads (name of study) elbow and shoulder Radiology: Prelim report reviewed (no fractures; chronic changes. ) PD MEDICAL DECISION MAKING - ED course Complexity details: reviewed old records, reviewed results, considered differential (cocnern for syncope rather than fall. Labs done just yesterday, so not much repeated. Xrays of elbow and shoulder today. ), d/w patient, d/w integration consultant (Hospitalist) Departure - Departure Disposition: ED Place in Observation Clinical Impression: Near syncope, Frequent falls, Parkinsons Fall Qualifiers: Encounter type: initial encounter Qualified Code(s): W19.XXXA - Unspecified fall, initial encounter Dyspnea Qualifiers: Dyspnea type: dyspnea on exertion Qualified Code(s): R06.09 - Other forms of dyspnea Prepatellar bursitis Qualifiers: Laterality: right Qualified Code(s): M70.41 - Prepatellar bursitis, right knee Condition: Stable Record reviewed to determine appropriate education?: Yes
[2017-01-29] MEDS ORDERED: ACETAMINOPHEN 325 MG TABLET PO PRN (17:27)
[2017-01-29] MEDS ORDERED: PROCHLORPERAZINE 10 MG/2 ML VIAL IVP PRN (17:27)
[2017-01-29] MEDS ORDERED: SODIUM CHLORIDE FLUSH 0.9% 10 ML SYRINGE IVP PRN (17:27)
[2017-01-29] MEDS ORDERED: traZODone 50 MG TABLET PO PRN (17:35)
[2017-01-29] MEDS ORDERED: SODIUM CHLORIDE 0.9% 1,000 ML IV SCH (18:00)
[2017-01-29 18:09] LABS: BASOPHILS % (AUTO) 0.4 %; EOSINOPHILS # (AUTO) 0.1 10^3/uL (0.0-0.7); HCT - HEMATOCRIT 29.2 % (42.0-52.0); HGB - HEMOGLOBIN 9.9 g/dL (14.0-18.0); LYMPHOCYTES # (AUTO) 0.5 10^3/uL (1.5-3.5); MEAN CORPUSCULAR HEMOGLOBIN 32.7 pg (27.0-31.0); MONOCYTES # (AUTO) 0.1 10^3/uL (0.0-1.0); MONOCYTES % (AUTO) 2.5 %; NEUTROPHILS # (AUTO) 4.8 10^3/uL (1.5-6.6); NEUTROPHILS % (AUTO) 87.1 %; RED BLOOD COUNT 3.04 10^6/uL (4.70-6.10); UNCORRECTED WHITE BLOOD COUNT 5.6 x10^3/uL; WHITE BLOOD COUNT 5.6 x10^3/uL (4.8-10.8)
[2017-01-29 18:23] LABS: ALBUMIN/GLOBULIN RATIO 1.2 (1.0-2.2); BILIRUBIN,TOTAL 0.7 mg/dL (0.2-1.0); BUN - BLOOD UREA NITROGEN 35 mg/dL (6-20); CALCIUM 8.6 mg/dL (8.5-10.3); CARBON DIOXIDE - CO2 28 mmol/L (21-32); CHLORIDE 103 mmol/L (101-111); CREATININE 1.2 mg/dL (0.6-1.2); GFR - MDRD 60 (>89); GLUCOSE 98 mg/dL (70-100); MAGNESIUM 2.4 mg/dL (1.7-2.8); SODIUM 138 mmol/L (135-145); TOTAL PROTEIN 6.5 g/dL (6.7-8.2)
[2017-01-29 18:31] LABS: INR 1.2 (0.8-1.2); PT - PROTHROMBIN TIME 13.3 secs (9.9-12.6)
--- NOTE | 2017-01-29 19:07 | XRAY Preliminary Report ---
Exam: XR Chest 1 View IMPRESSION: 1. Minimal patchy airspace disease in the right upper lobe which could represent developing pneumonia versus atelectasis/scar. 2. Tiny right pleural effusion versus scar. [facility] SITE ID: [id number]
--- NOTE | 2017-01-29 19:10 | XRAY Report ---
EXAM: CHEST RADIOGRAPHY EXAM DATE: 01/29/2017 06:44 PM. CLINICAL HISTORY: SOB. COMPARISON: 01/28/2017. TECHNIQUE: 1 view. FINDINGS: Lungs/Pleura: There is blunting of the right costophrenic angle suggesting a tiny effusion versus sca r. Some minimal patchy airspace disease in the right upper lung zone may represent a tiny infiltrate versus atelectasis/scar. Mediastinum: Within exam limitations, cardiomediastinal contour is normal. Other: Spinal fusion hardware is again noted. IMPRESSION: 1. Minimal patchy airspace disease in the right upper lobe which could represent developing pneumonia versus atelectasis/scar. 2. Tiny right pleural effusion versus scar. [facility] Referring Provider Line: [phone] SITE ID: [id number]
[2017-01-29] MEDS ORDERED: ALBUTEROL 6.7 GM INHALER INH SCH (21:00)
[2017-01-29] MEDS: AMANTADINE 100 MG CAPSULE PO SCH (21:44)
[2017-01-29] MEDS: rOPINIRole 1 MG TABLET PO SCH (21:45)
[2017-01-29] MEDS: SODIUM CHLORIDE FLUSH 0.9% 10 ML SYRINGE IVP SCH (21:46)
[2017-01-29] MEDS ORDERED: ceFAZolin 1 GM VIAL IVP SCH (23:00)
[2017-01-29] MEDS ORDERED: ceFAZolin 1 GM in SODIUM CHLORIDE 0.9% MINIBAG 100 ML IV SCH (23:00)
[2017-01-29] MEDS: ceFAZolin 1 GM in SODIUM CHLORIDE 0.9% MINIBAG 100 ML IV SCH (23:30)
[2017-01-30] MEDS: rOPINIRole 1 MG TABLET PO SCH (04:31)
[2017-01-30] MEDS: SODIUM CHLORIDE FLUSH 0.9% 10 ML SYRINGE IVP SCH (04:33)
[2017-01-30] MEDS: ceFAZolin 1 GM in SODIUM CHLORIDE 0.9% MINIBAG 100 ML IV SCH ×2 (04:53→11:17)
[2017-01-30] MEDS ORDERED: QUEtiapine 25 MG TABLET PO SCH ×2 (08:00→09:00)
[2017-01-30] MEDS ORDERED: CARBIDOPA PO SCH ×4 (08:00→13:00)
[2017-01-30] MEDS ORDERED: LEVODOPA PO SCH ×4 (08:00→13:00)
[2017-01-30] MEDS ORDERED: FAMOTIDINE 20 MG TABLET PO SCH (09:00)
[2017-01-30] MEDS ORDERED: POLYETHYLENE GLYCOL 3350 17 GM PACKET PO SCH (09:00)
[2017-01-30] MEDS ORDERED: ESCITALOPRAM 10 MG TABLET PO SCH (09:00)
[2017-01-30] MEDS ORDERED: FLUDROCORTISONE 0.1 MG TABLET PO SCH (09:00)
[2017-01-30] MEDS: AMANTADINE 100 MG CAPSULE PO SCH (09:36)
--- NOTE | 2017-01-30 09:36 | HISTORY & PHYSICAL EXAMINATION ---
DATE OF ADMISSION: 01/29/2017 HISTORY OF PRESENT ILLNESS: This is a 71-year-old white male with a history of early onset Parkinson's that he has had for approximately 30 years. His major symptoms are rigidity and a shuffling gait and minimal shakiness. The patient presents with complaints of frequent falls and probable syncope. The patient and give the history that the patient has been worsening over the past 2 months overall with weakness. There have been multiple falls when he is in a standing position from lightheadedness he states. Several weeks ago, one of the falls led to a wound of the right knee, which has required orthopedic attention with debridement, packing which the does, and antibiotics. Over the past 1-2 months there has been new onset of dyspnea on exertion, which waxes and wanes. There has been no orthopnea or PND. Over the past 1-2 months, there has been new onset of chest pressure without radiation, which mostly occurs with activity and resolves with rest. There was one episode of chest pain that was nocturnal and woke him from sleep for which the patient was able to find relief getting out of bed and changing positions to a recliner. The patient was seen in the emergency room the day prior to admission with complaints of falls and had various chest x-rays to rule out fractures, which were negative. It was felt that his Aricept should be stopped and Florinef should be started, and he was to have evaluation by his general doctor with a Holter and a stress test. Today, he had 3 episodes of falling with brief loss of consciousness. Two episodes occurred while just walking from a restaurant to his car where, using a cane, he simply crumbles and the was able to catch him to prevent a fall. The patient cannot remember certain moments of these various falls, suggesting that he does have syncope. He describes 2 other episodes in the past week where he fell in his outdoor patio striking his head, shoulder and elbows. One other episode of a fall within the house precipitated the to raise him, but he had no strength to assist in getting up on his own. MEDICATIONS BEFORE ADMISSION 1. Amantadine 100 mg p.o. b.i.d. 2. Quetiapine 62.5 mg p.o. daily. 3. Ropinirole 8 mg p.o. t.i.d. 4. Trazodone 50 mg p.o. at bedtime. 5. Myrbetriq 50 mg p.o. daily. 6. Aricept, unknown dose daily (this was discontinued just yesterday at the advice of his neurologist). 7. Mirtazapine, unknown dose p.o. daily. 8. Lexapro 15 mg p.o. daily. 9. ProAir HFA inhaler 2 puffs q.i.d. 10. Carbidopa/levodopa 23.75/95 mg p.o. q.i.d. 11. The patient had not yet started the prescribed Florinef 0.1 mg p.o. daily. ALLERGIES 1. MORPHINE, WHICH CAUSED SEVERE HALLUCINATIONS. 2. ERTAPENEM, WHICH ALSO CAUSED SOME TYPE OF CONFUSION. REVIEW OF SYSTEMS: The patient states that he has been seeing things that are not there and when he goes to approach them they disappear. This happened to him previously when he was taking the above antibiotic. He thinks he had a heart murmur as a child, which he "outgrew." The patient has lost approximately 50 pounds of weight over the past 6 months despite a good appetite and good p.o. intake, according to the . The patient has been following up with Dr. Chan Narayan for the right knee debridement and antibiotic choices. The patient has never had a stress test and denies any cardiac history. The rest of the review of systems is as above. FAMILY HISTORY: Unremarkable. SOCIAL HISTORY: He lives with his . He is retired from being an boat motor mechanic and does admit to exposure to carbon tetrachloride. The patient never smoked and drinks no alcohol. Denies any illicit drug use. PHYSICAL EXAMINATION GENERAL: Reveals a cachectic white male. He is very soft spoken (this is chronic , according to the ). He appears fatigued and appears dehydrated. VITAL SIGNS: Blood pressure 118/69, pulse is 76 (in the emergency room he had sudden drops of heart rate to the 48 range). He is afebrile. HEENT: Shows sunken eyes, dry oral mucosa with cracking of his lips and corners of his mouth. NECK: Shows no JVD at a 30-degree upright position, normal carotid upstrokes, and no lymph nodes. CHEST: Clear, except a rare wheeze in the right base. HEART: Sounds are normal with no audible murmur. There is no heave or gallop. ABDOMEN: Scaphoid, decreased bowel sounds, nontender to palpation. No masses are felt. No bruits. EXTREMITIES: No clubbing or cyanosis. There is a bandage over the right knee with swelling of that knee, but no warmth and no redness seen around the bandage. RECTAL: Deferred. NEUROLOGIC: Intact. LABORATORY: INR 1.2, white blood count 5.6, hemoglobin 9.9, platelet count normal, differential normal, electrolytes normal, BUN 35, creatinine 1.2. Normal liver tests. Troponins are normal x2. Albumin is 3.6. EKG: Sinus bradycardia at a rate of 50, but otherwise unremarkable. IMAGING: X-rays of the elbows and shoulders were negative for fracture. Chest x- ray with minimal patchy airspace disease in the right upper lobe, which could be a developing pneumonia or atelectasis, and a small right pleural effusion versus scar. IMPRESSION/DIAGNOSES WITH PLAN 1. Syncope or near syncope. Because of the patient's Parkinson disease, which is longstanding, he may have autonomic dysfunction causing orthostasis. His exam is consistent with dehydration, which may also add to orthostatic blood pressure. Intermittent bradycardia was noted and may also be leading to his weakness, falls, and syncope. The infection of the right knee may be resulting in bacteremia, which could also precipitate syncope and weakness. The patient will be placed on telemetry, have orthostatic vital sign checks, have hydration with saline, and an unrestricted diet and salt use. The Florinef will be instituted. If there is a fever, he will be cultured to rule out bacteremia or septicemia. His medications will be reviewed to determine if the doses are correct as some of the doses are unknown, and the Requip dose sounds very excessive. The patient will have an echo. No Holter monitor is available at this facility, but telemetry will be continued to watch for dysrhythmia. 2. Frequent falls. These have resulted in bruises and scrapes, but also a wound of the right knee, which is now infected. The patient will have bedside commode and assistance with rising and physical therapy evaluation. 3. Parkinson disease. His Parkinson's medications will be continued. I suspect that autonomic dysfunction from longstanding Parkinson's is leading to his main complaint. Florinef and/or Northera will be considered for management. As per Neurology recommendations, his Aricept will be stopped as this could be causing bradycardia and adding to the dizziness and falls. 4. Infected right knee. Dr. Chan Narayan will be requested for consult for further recommendations. His needs to bring in the bottle of the antibiotics that he uses to confirm this dose. If there has been cultures of this wound, antibiotics will be ordered based on sensitivities. Continued topical management will be ordered. 5. Dehydration. On physical exam, he has sunken eyes and dry mucosa, and he will be hydrated. No restrictions in p.o. intake. 6. New onset of dyspnea on exertion. The patient will have an echo and troponins to be cycled to rule out myocardial infarction. Depending on his course, stress testing could be done as an inpatient. 7. New onset of chest pain. Rule out angina, this patient's risk factors include his age and gender only. Depending on results of troponins, he may undergo an inpatient stress test. Await the echo to rule out regional wall motion abnormalities. 8. Bradycardia. Some of his parkinsonian medications could be adding to bradycardia; however, the intermittent and sudden marked heart rate changes are concerning and may be a sign of underlying conduction system disease or BASE ENGINEER etiology. Telemetry will be continued. Orthostatic vital signs will be checked. JOB #: [id number] EXT JOB #:[id number] BRYNN
--- NOTE | 2017-01-30 11:03 | CT Preliminary Report ---
Exam: CT Head W/O Stroke Protocol IMPRESSION: New right-sided moderate sized subdural hematoma, 8 mm in transverse diameter in the righ t posterior parietal region with slight mass effect upon the posterior right lateral ventricle. Mild atrophy, age-appropriate, similar to prior exam. No additional abnormalities or changes noted since prior study. CLINICAL RESULTS discussed directly with attending BANDAR Vargas by this radiologist at 1100 hrs., for att ending physician Kanchan Casillas M.D. by this radiologist. [facility] SITE ID: [id number]
--- NOTE | 2017-01-30 11:06 | CT Report ---
EXAM: CT HEAD WITHOUT CONTRAST, ACUTE STROKE PROTOCOL EXAM DATE: 01/30/2017 10:23 AM. CLINICAL HISTORY: Delirium in a 71-year-old male. COMPARISON: 01/28/2017 and previous.. TECHNIQUE: Multiaxial CT images were obtained from the foramen magnum to the vertex on an emergent ba sis. IV contrast: None. Reformats: Coronal. In accordance with CT protocol optimization, one or more of the following dose reduction techniques w ere utilized for this exam: automated exposure control, adjustment of mA and/or KV based on patient s ize, or use of iterative reconstructive technique. FINDINGS: Parenchyma: Generalized mild age-appropriate cerebral and cerebellar atrophy, as previously. No intra parenchymal hemorrhage. No evidence of mass, midline shift, or CT findings of acute infarction. Rueda- white differentiation is distinct. Extraaxial Spaces: Moderate-sized new right subdural hematoma 8 mm in thickness in the right posterio r parietal region, extending from the right frontoparietal region to the right occipitoparietal regio n. Left-sided extra-axial spaces and other extra-axial spaces unremarkable. Ventricles: The ventricles and cortical sulci are mildly enlarged, consistent with age-related tissue loss. Mild mass effect on the posterior horn of the right lateral ventricle body secondary to small to moderate subdural fluid collection. No intraventricular hemorrhage.. Sinuses: Imaged paranasal sinuses, orbits, and mastoids show no significant abnormality. Bones: No evidence of fracture or calvarial defect. Other: Diffuse chronic microangiopathic white matter changes are evident. IMPRESSION: New right-sided moderate sized subdural hematoma, 8 mm in transverse diameter in the righ t posterior parietal region with slight mass effect upon the posterior right lateral ventricle. Mild atrophy, age-appropriate, similar to prior exam. No additional abnormalities or changes noted since prior study. CLINICAL RESULTS discussed directly with attending BANDAR Vargas by this radiologist at 1100 hrs., for att ending physician Kanchan Casillas M.D. by this radiologist. [facility] Referring Provider Line: [phone] SITE ID: [id number]
[2017-01-30] MEDS ORDERED: MANNITOL 20% IV SCH (12:30)
[2017-01-30 12:59] VITALS: BP 146/60
[2017-01-30] MEDS ORDERED: levETIRAcetam INJ 1,000 MG in SODIUM CHLORIDE 0.9% 100ML 100 ML IV SCH (13:00)
--- NOTE | 2017-01-30 20:51 | HISTORY & PHYSICAL EXAMINATION ---
DATE OF ADMISSION: 01/29/2017 CRITICAL CARE NOTE INITIAL TIME: 9:30 a.m. COMPLETION: 11 a.m. COURSE: During morning rounds, the patient reported to me that he was having hallucinations similar to those that he has "had in the past when I took certain antibiotics." The confirmed that the patient was more confused today and more lethargic. The patient described not having restful sleep. The patient then began to speak with babbling tones and was not coherent. The neurologic exam at that point revealed that he was alert to person and place, but not time. He had a nonfocal neuro exam except for the change of speech and he appeared more lethargic. A stat CT scan of the brain was arranged and performed. When the patient returned from the CAT scan, I again examined him, and he was weaker, continued to have intermittent confusion and intermittent garbled and incoherent speech. He also would close his eyes during speaking and stop verbalizing, as if he was more lethargic. He would then awaken suddenly and try to climb out of bed. He was able to be reoriented by his and friends in the room and then did not climb out of bed. The neurologic exam was redone. He was oriented to person and place, but not time. He was more lethargic. The RN reported that he was now too weak to hold up a paper cup, which he was able to do just 2 hours earlier for breakfast. The CT scan of the brain report returned showing an acute subdural hematoma (vs subacute, since the comparison was from a CT scan of the brain done 48 hours prior). I arranged for transfer via helicopter to a higher level of care facility, and he was accepted in transfer by Neurosurgery at [facility]. During this time, I returned back to evaluate the patient approximately 2 more times, and also updated the on his progress and the plan. He was unchanged. At this point was ordered to receive IV Keppra loading dose and IV mannitol loading dose. Critical care time spent 90 minutes. JOB #: [id number] EXT JOB #:[id number] BRYNN
[2017-01-30] MEDS ORDERED: MIRTAZAPINE 15 MG TABLET PO SCH (21:00)
[2017-01-31] MEDS ORDERED: LEVODOPA PO SCH (08:00)
[2017-01-31] MEDS ORDERED: CARBIDOPA PO SCH (08:00)
--- NOTE | 2017-01-31 08:05 | DISCHARGE SUMMARY ---
DATE OF ADMISSION: 01/29/2017 DATE OF DISCHARGE: 01/30/2017 TRANSFER/DISCHARGE SUMMARY REASON FOR TRANSFER: Acute subdural hematoma with evolving neurologic changes. This is a 71-year-old white male with a history of early onset Parkinson's and 1 to 2 months of worsening dyspnea on exertion, new chest discomfort, worsening weakness, frequent falls, recurrent near syncope and syncope. He presented yesterday with these complaints after approximately 3 falls the day before admission and the day of admission. He knew that he hit his head with at least one of these falls on the ground of his outdoor patio. HOSPITAL COURSE: The patient appeared dehydrated clinically and hydration was started. He had documentation of orthostasis with 20 mmHg blood pressure drops between a supine to standing position. telemetry monitor showed intermittent sinus bradycardia with heart rates in the 48-50 range, which occurred in any position and would recover spontaneously. On the morning of 01/30/2017, he described that he had "nightmares and hallucinations overnight" and his reported that he was more lethargic than normal. He was sent for a STAT CT scan of the head, which showed a new subdural hematoma, changed from a CT of the head done 2 days previously. I arranged for transfer, contacted [facility], and he was accepted in transfer by neurosurgeon, Dr. Ezequiel Wilkinson. The patient was loaded with IV mannitol and IV Keppra and kept n.p.o. The plan is to transfer him with helicopter/fixed wing transport to the Neuro ICU of [facility]. DISCHARGE DIAGNOSES 1. Acute subdural hematoma with neurologic compromise. 2. Frequent falls and known recent head trauma. 3. Orthostatic hypotension. 4. Recent syncope, brief, recurrent. 5. Intermittent bradycardia, which is probably related to #1. 6. Longstanding parkinsonism. 7. Right knee wound, which resulted after a fall and injury to that knee several weeks previously. 8. New onset of chest pain, etiology unclear. Troponin levels were negative during this admission. 9. New onset of dyspnea on exertion. The echocardiogram is still pending at the time of transfer CONDITION AT DISCHARGE/TRANSFER: Guarded. JOB #: [id number] EXT JOB #:[id number] [facility]
== END 2017-01-30 13:00 | disposition short-term general hospital (02) | DRG 84 ==
LOC: EDUNIT# → ED 14:59 → MS2 17:27
PROVIDERS: ADMIT Internal Medicine; ATTEND Internal Medicine
DX: R55 Syncope and collapse (principal); R29.6 Repeated falls; S06.5X9A Traumatic subdural hemorrhage with loss of consciousness of unspecified duration, initial encounter; W19.XXXA Unspecified fall, initial encounter; M70.41 Prepatellar bursitis, right knee; S50.312A Abrasion of left elbow, initial encounter; S40.212A Abrasion of left shoulder, initial encounter; Z91.81 History of falling; Z87.891 Personal history of nicotine dependence; Y92.008 Other place in unspecified non-institutional (private) residence as the place of occurrence of the external cause; I95.1 Orthostatic hypotension; R00.1 Bradycardia, unspecified; G20 Parkinson's disease; R06.09 Other forms of dyspnea; R07.89 Other chest pain; S81.001D Unspecified open wound, right knee, subsequent encounter; L08.9 Local infection of the skin and subcutaneous tissue, unspecified; E86.0 Dehydration; Z88.5 Allergy status to narcotic agent; Z88.1 Allergy status to other antibiotic agents; Z79.899 Other long term (current) drug therapy; Z57.5 Occupational exposure to toxic agents in other industries
CPT/HCPCS: 36415; 70450; 71010; 80053; 83735; 84484; 85025; 85610; 93005; 93306; 96361; 96374; 99284; 99285